=== PATIENT | male | born 1960 | race Hispanic/Latino ===

== ENCOUNTER 2019-06-04 07:06 | Emergency (ER) | payer MEDICAID ==
--- NOTE | 2019-06-04 08:25 | CR ---
Left elbow: 3 views left elbow were obtained. Comparison: No previous study. Chip fracture is felt to be present off the lateral elbow. Well-corticated bony density noted off the radial head compatible with old injury. Small joint effusion is seen. Impression: 1. Acute chip fracture off the lateral elbow. 2. Old fracture within the radial head. 3. Joint effusion. Diagnostic code #3 Study was dictated in MDT
--- NOTE | 2019-06-04 08:38 | EDM.PDOC ---
ED HPI GENERAL MEDICAL PROBLEM - General Chief Complaint: Upper Extremity Injury/Pain Stated Complaint: SWOLLEN LT ELBOW Time Seen by Provider: 06/04/19 08:24 - History of Present Illness INITIAL COMMENTS - FREE TEXT/NARRATIVE: HPI 58 y/o male presents for evaluation of several days of gradual onset discomfort over his left posterior lateral elbow. Denies trauma, warmth, swelling, redness , tenderness, notes normal sensation in his left hand. Pain is provoked by movement and relieved by rest. Unable to identify any precipitating event for todays emergency department evaluation. ROS with no recent constitutional symptoms. Patient states that he has prior left humeral/elbow fractures that he did not seek medical care for. Exam HR 95, RR 17, BP 131/102, T 36.0C, SaO2 99% on room air. Gen: Pleasant, nontoxic-appearing, resting comfortably. HEENT: NC, AT, PEERL, EOMI. Resp: Unlabored respirations with a normal work of breathing. Card: Extremities warm and well perfused. GI: Non-distended. : Deferred MSK: left upper extremity - visually normal, full functional range of motion of the shoulder, wrist, and fingers. Globally reduced range of motion of the elbow in all modalities secondary to mild pain, there is point tenderness to palpation over the lateral epicondylar region of the distal humerus, elbow was without warmth, swelling, appreciable effusion, or intra joint pain on movement of the elbow. [place] numbers is without swelling or tenderness. No abnormal warmth, tenderness, or other palpable abnormalities of the joints or upper arm or forearm; muscle compartments soft.2+ radial pulse, all fingers warm and well perfused.Sensation intact to touch on all fingers. Neuro: alert and oriented 3, no facial asymmetry, vision and hearing WNL. Heme/Lymph: Deferred Skin: Normal color with no visible lesions (other than noted above). Psych: Mood and affect appropriate. Imaging: XR L Elbow: 1. Acute chip fracture of the lateral elbow. 2. No fracture within the radial head. 3. Joint effusion. MDM Previous chart, nursing note, and vitals reviewed. A: 58 y/o male presents for evaluation of several days of gradual onset discomfort over his left posterior lateral elbow. DDx & Evaluation: CMS intact, imaging concerning for a chip fracture the lateral elbow, patient placed in posterior slab splint, provide with a sling and instructed to follow up with orthopedics. Exam without evidence of bursitis or septic or crystalline arthropathy. As the patient may have renal disease ( patient unclear medical nurse) recommend acetaminophen for pain control. Impression: left elbow pain. Left Elbow Pain Score (Numeric/FACES): 5 - Related Data Allergies Allergy/AdvReac Type Severity Reaction Status Date / Time No Known Allergies Allergy Verified 06/04/19 07:30 Home Meds: Home Meds . [Unable to Verify Home Med List] 06/04/19 [History] Past Medical History Cardiovascular History: Reports: Cardiomyopathy, Hypertension, Prior Cardiac Arrest, Other (See Below) Other Cardiovascular History: Ejection Fraction of 15% Neurological History: Reports: Concussion - Infectious Disease History Infectious Disease History: Reports: MRSA - Past Surgical History Neurological Surgical History: Reports: None Social & Family History - Family History Family Medical History: Noncontributory - Tobacco Use Smoking Status *Q: Never Smoker Second Hand Smoke Exposure: No - Caffeine Use Caffeine Use: Reports: Coffee, Energy Drinks, Soda - Recreational Drug Use Recreational Drug Use: Yes Drug Use in Last 12 Months: Yes Recreational Drug Type: Reports: Marijuana/Hashish, Methamphetamine Recreational Drug Use Frequency: Weekly Review of Systems - Review of Systems Review Of Systems: See Below ED EXAM, GENERAL - Physical Exam Exam: See Below Course - Vital Signs Last Recorded V/S: Last Vital Signs Temp 36.0 C L 06/04/19 07:26 Pulse 95 06/04/19 07:26 Resp 17 06/04/19 07:26 BP 131/102 H 06/04/19 07:26 Pulse Ox 99 06/04/19 07:26 - Orders/Labs/Meds Orders: Active Orders 24 hr Category Date Time Status Communication Order [RC] STAT Care 06/04/19 08:36 Ordered Departure - Departure Time of Disposition: 08:37 Disposition: Home, Self-Care 01 Clinical Impression: Left elbow fracture - Discharge Information Referrals: PCP,None [Primary Care Provider] - Additional Instructions: You were in seen in the [facility] Emergency Department for evaluation of an injury to your left elbow. You are suspected to have a chip fracture at your elbow. You have been provided with a splint and sling and should follow up with orthopedics as below. Please read and follow all of the instructions below. Please follow up with Dr. Justus Hwang, of orthopedics within 4-5 days. You may contact Dr. Hawley office at [phone] by phone tomorrow to arrange follow up care. Dr. Hawley office is located at [address] [place], [place] [address] [address] [address] Please follow up with your primary care physician in 3-4 days for repeat evaluation. When calling for follow-up care, please make the office aware that this follow-up is from your recent emergency room visit. If for any reason you are refused follow-up, please contact the [facility] Emergency Department at and asked to speak to the emergency department charge nurse. Your care today was limited to identifying and treating emergent medical problems only. Many people have subtle differences in their test results that require follow up with their outpatient physician(s) to correctly determine if this represents a normal variation or concerning abnormality with respect to your specific health. The care given to you today was limited to identifying and treating emergent medical problems - you need to request a copy of all of your medical records from today's visit and follow up with your outpatient physician(s) to review both today's visit and your overall health. If you have any new symptoms or if you are at all concerned about your health please return immediately to the emergency department. Prescriptions: If you are uninsured or have financial difficulties with filling your prescription(s), you may consider using a free pharmacy discount service such as [employer] (Verious) or [employer] ([place]). These services allow you to search for a medication on your phone (or computer) and obtain a coupon that usually has a significant discount from the list [place] at a pharmacy. Your physician as well as [facility] does not have a financial relationship with either of these services. You may also wish to speak with your physician to determine if lower cost prescriptions are possible. Obtaining primary care: 1. [facility] provides pediatrics (children), family medicine (children, adults, and some obstetrical care), and internal medicine (adults). Further specialty care is also available. Same day appointments are available. They may be contacted at [phone] and are open Wednesday through Wednesday 8 AM to 5 PM. The [facility] are located at [facility], [address] [place], [place] [address]. 2. [facility] offers family medicine, internal medicine, womens health, and further specialty care. [facility] may be contacted at [phone]. [facility] is located at [address] [place], [address]. 3. If you have health insurance, please also contact your insurer for a list of accepting providers under your policy, you may contact these providers for further health care. Occupational health: Work related injuries may consider following up with [facility], . Occupational health services are located at [address] [place] [address] and are open Wednesday through Wednesday from 7: 30 am to 5:00 pm. Obstetrical and Gynecological Care: [facility], , Wednesday through Wednesday 8 AM to [address] [place] [address]. Eyecare: If you have an eye injury you should follow up with your rubber covering machine operator or with [facility], at [phone] or [phone] , they are located at [address] [place] [address]. Dental Care Gerardo Sparks DDS. [address] [place], [place]. Ph. [phone] Florentin Sparks DDS MS. [address] [facility] [address], [place], [place]. Ph. Eligio Ye DDS. [address] [place]. Ph. [phone] Orlando Vega DDS. [address] [facility] 4 [place], [place]. Ph. [phone] Marcos Dillon DDS PC. [address] [facility] [address] [place], [place]. Ph. [phone] Telly Mar DDS. [address] [facility]. Ph. [phone] [facility]. [address] [place], [place]. Ph. [phone] [facility]. [address], [place], [place]. Ph. [phone] [facility] [address] [place] [phone]. Ph. [facility]. [address] [place] [address] [address] [place], [place]. Ph. [facility]. [address], [place], [place]. Ph. Cast Care Use these instructions for cast care/use: DO keep the cast dry. When you take a shower, your cast needs to stay dry. Put a plastic bag around the cast. DO check the skin around the cast every day. Look for red or irritated areas. You can put lotion on the affected areas. Go back to the doctor if the irritation gets worse. DO come here or go to your doctor or the nearest Emergency Department if the cast gets wet and soft. Also come here or go to your doctor or Emergency Department if it gets loose and starts to slip. DO NOT put pressure on any part of the cast until it is completely dry and fully hardened (24 hours). DO NOT try to scratch the skin under the cast by putting sharp, pointy objects down the cast. Tap on the outside of the cast where the itch is. This will help with the itchy feeling. DO NOT put weight on the cast or use the affected extremity (arm or leg) until the follow-up doctor says you can. Check capillary refill (circulation) in the nail beds. Press on the nail bed and then release. It should turn white when you press on it. It should then get pink again in less than 2-3 seconds after you let go. Watch to see if the area beyond the cast gets swollen. Sometimes the cast is too tight. When this happens, the skin of the hand/fingers is very cold, pale or numb to the touch. If you have these symptoms and think your cast is too tight, come back here or go to the nearest Emergency Department or the orthopedic (bone) doctor right away. DO NOT try to take the cast off yourself! YOU SHOULD SEEK MEDICAL ATTENTION IMMEDIATELY, EITHER HERE OR AT THE NEAREST EMERGENCY DEPARTMENT, IF ANY OF THE FOLLOWING OCCURS: The affected area gets swollen or much more painful. You have new numbness or tingling in or below the injured area. Your extremity (hand or foot) gets cold and pale. This could mean it has a problem with its blood supply. Acetaminophen (Tylenol) Please take 1,000 mg every 6 hours as needed for pain. Do no use with alcohol or other acetaminophen containing medications. SIDE EFFECTS: This drug usually has no side effects. If you do not have liver problems, the maximum dose of acetaminophen for adults is 4 grams per day (4000 milligrams). Taking more than the maximum daily amount may cause serious ( possibly fatal) liver damage. Get medical help right away if you have any of the following symptoms of liver damage: persistent nausea/vomiting, extreme tiredness, stomach/abdominal pain, yellowing eyes/skin, dark urine. If you have liver problems, consult your doctor or pharmacist for a safe dosage of this medication. A very serious allergic reaction to this drug is rare. However, get medical help right away if you notice any symptoms of a serious allergic reaction, including: rash, itching/swelling (especially of the face/tongue/ throat), severe dizziness, trouble breathing. This is not a complete list of possible side effects. If you notice other effects not listed above, contact your doctor or pharmacist. Sepsis Event Note - Evaluation Sepsis Screening Result: No Definite Risk - Focused Exam Vital Signs: Vital Signs Temp Pulse Resp BP Pulse Ox 06/04/19 07:26 36.0 C L 95 17 131/102 H 99 Date Exam was Performed: 06/04/19 Time Exam was Performed: 08:37 - My Orders Last 24 Hours: My Active Orders 06/04/19 08:36 Communication Order [RC] STAT - Assessment/Plan Last 24 Hours: My Active Orders 06/04/19 08:36 Communication Order [RC] STAT
== END 2019-06-04 09:03 | disposition home or self-care (01) ==
LOC: MW.ED 07:06
DX: S42.402A Unspecified fracture of lower end of left humerus, initial encounter for closed fracture (principal); I10 Essential (primary) hypertension; X58.XXXA Exposure to other specified factors, initial encounter
CPT/HCPCS: 29105; 73080-26-LT; 73080-LT; 99282; 99283-25